=== PATIENT | female | born 1950 | race African-American/Black ===

== ENCOUNTER 2017-04-18 10:07 | Outpatient (CLI) | payer OTHER ==
--- NOTE | 2017-04-18 12:08 | MMO ---
BILATERAL SCREENING MAMMOGRAMS: Date: 04/18/17 Comparison made to prior exams from 2014 and 2015. This patient's mammogram was interpreted with the assistance of computer-aided detection. FINDINGS: Scattered fibroglandular densities. Asymmetric nodular density in the inner left breast remains stabl e. No other mass or nodule. No interval change. Recommend one year follow-up. IMPRESSION: BIRADS 2: Benign Finding(s) POS: [place]
== END 2017-04-18 10:08 | disposition home or self-care (01) ==
LOC: SCSMAMMO 10:07
PROVIDERS: ATTEND Family Medicine
DX: Z12.31 Encounter for screening mammogram for malignant neoplasm of breast (principal)
CPT/HCPCS: 77067; G0202

== ENCOUNTER 2019-04-23 13:43 | Outpatient (CLI) | payer OTHER ==
--- NOTE | 2019-04-23 11:56 | MMO ---
Bilateral MAMMO Bilat Screen [facility]. CLINICAL HISTORY: Patient is 68 years old and is seen for screening. VIEWS: The views performed were: . FILMS COMPARED: The present examination has been compared to prior imaging studies performed at [facility] on 10/23/2014, 11/03/2014, 01/05/2016 and 04/18/2017. This study has been interpreted with the assistance of computer-aided detection. MAMMOGRAM FINDINGS: There are scattered fibroglandular densities. There is a stable round mass seen in the inner region of the left breast. There are no suspicious masses, calcifications or areas of architectural distortion. There are no suspicious masses, suspicious calcifications, or new areas of architectural distortion. IMPRESSION: THERE IS NO MAMMOGRAPHIC EVIDENCE OF MALIGNANCY. A ROUTINE FOLLOW-UP MAMMOGRAM IN 1 YEAR IS RECOMMENDED. THE RESULTS OF THIS EXAM WERE SENT TO THE PATIENT. ACR BI-RADS Category 2 - Benign finding MAMMOGRAPHY NOTE: 1. A negative mammogram report should not delay a biopsy if a dominant of clinically suspicious mass is present. 2. Approximately 10% to 15% of breast cancers are not detected by mammography. 3. Adenosis and dense breasts may obscure an underlying neoplasm. Reported by: ALDEN BHANDARI MD Electonically Signed: [id number]
--- NOTE | 2019-04-23 14:39 | BD ---
Exam: DEXA Bone Density 04/23/19 HISTORY: Postmenopausal. Lumbar Spine: BMD (g/cm2) T-SCORE L1 1.200 +1.9 L2 1.291 +2.4 L3 1.237 +1.4 L4 1.191 +1.2 L1-L4 1.336 +1.6 Left Femoral Neck: 0.930 +0.7 Total Femur: 1.094 +1.2 Impression: Normal bone mineral density of the lumbar spine and left femoral neck. POS: [place]
== END 2019-04-23 13:44 | disposition home or self-care (01) ==
LOC: BICMAMMO 13:43
PROVIDERS: ATTEND Family Medicine
DX: Z12.31 Encounter for screening mammogram for malignant neoplasm of breast (principal); Z13.820 Encounter for screening for osteoporosis; Z78.0 Asymptomatic menopausal state
CPT/HCPCS: 77063; 77067; 77080